=== PATIENT | female | born 1985 | race Caucasian/White ===

== ENCOUNTER 2018-03-15 13:27 | Emergency (ER) | payer BC ==
[2018-03-15] MEDS ORDERED: Metoclopramide HCl 10 MG/2 ML VIAL ONE (14:10)
[2018-03-15] MEDS ORDERED: diphenhydrAMINE 50 MG/ML VIAL ONE (14:10)
[2018-03-15] MEDS ORDERED: Famotidine 40 MG/4 ML VIAL SLOW IVP SCH (14:30)
[2018-03-15] MEDS ORDERED: Famotidine/PF 20 mg/2ml Vial SLOW IVP SCH (14:45)
[2018-03-15 14:51] LABS: #Eosinphils 0.1 thou/uL (0.0-0.7); #Lymphocytes 1.7 thou/uL (1.20-3.40); #Monocytes 0.5 thou/uL (0.11-0.59); #Neutrophils 9.1 thou/uL (1.40-6.50); %Basophils 0.4 % (0.0-1.0); %Eosinophils 0.5 % (0.0-10.0); %Monocytes 4.3 % (0.0-10.0); %Neutrophils 79.9 % (42.0-75.0); Mean Corpuscular HGB CONC 35.4 g/dL (32.0-36.0); Mean Corpuscular Hemoglobin 29.2 pg (27.0-31.0); Mean Corpuscular Volume 82.4 fl (81.0-99.0); Platelet Count 329 thou/uL (130-400); Red Blood Cell (RBC) Count 4.11 mill/uL (4.20-5.40); White Blood Cell (WBC) Count 11.4 thou/uL (4.8-10.8)
[2018-03-15 15:11] LABS: ALT (SGPT) 12 U/L (8-55); AST (SGOT) 13 U/L (5-34); Albumin 3.8 g/dL (3.5-5.0); Alkaline Phosphatase 70 U/L (40-150); Anion Gap 11 mmol/L (10-20); BUN (Urea Nitrogen) 4 mg/dL (7.0-18.7); Bilirubin, Total 0.2 mg/dL (0.2-1.2); Calc. Creatinine Clearance 0 mL/min (70-130); Calcium 9.6 mg/dL (7.8-10.44); Carbon Dioxide 22 mmol/L (22-29); Chloride 106 mmol/L (98-107); Estimated GFR-MDRD Greater than 90; Globulin 3.1 g/dL (2.4-3.5); Glucose 92 mg/dL (70-105); Potassium 3.8 mmol/L (3.5-5.1); Protein, Total 6.9 g/dL (6.0-8.3); Sodium 135 mmol/L (136-145)
== END 2018-03-15 16:23 | disposition home or self-care (01) ==
LOC: ERS 13:27
DX: O21.0 Mild hyperemesis gravidarum (principal); Z3A.16 16 weeks gestation of pregnancy
CPT/HCPCS: 80053; 85025; 96361; 96374; 96375; J1200; J2765; S0028

== ENCOUNTER 2018-08-28 06:58 | Inpatient (IN) | payer BC ==
[2018-08-28 07:54] VITALS: BMI 38.9
[2018-08-28] MEDS ORDERED: Acetaminophen 500 MG TAB PO PRN (08:18)
[2018-08-28] MEDS ORDERED: Lidocaine 1% (PF) 30 ML VIAL SC PRN (08:18)
[2018-08-28] MEDS ORDERED: Ondansetron HCl/PF 4 MG/2 ML Vial IVP PRN ×4 (08:18→16:29)
[2018-08-28] MEDS ORDERED: Zolpidem Tartrate 5 MG TAB PO PRN (08:18)
[2018-08-28] MEDS ORDERED: Butorphanol Tartrate 1 MG/ML VIAL SLOW IVP PRN (08:18)
[2018-08-28] MEDS ORDERED: HYDROcodone/Acetaminophen 5/325 mg Tablet PO PRN ×3 (08:18→16:48)
[2018-08-28] MEDS ORDERED: NS / Oxytocin 40 units/1000ml 1,000 ML IV PRN (08:18)
[2018-08-28] MEDS ORDERED: Ibuprofen 800 MG TAB PO PRN (08:18)
[2018-08-28] MEDS ORDERED: Promethazine HCl 25 MG/ML VIAL IM PRN ×3 (08:18→16:29)
[2018-08-28] MEDS ORDERED: Fentanyl 4 mcg/Bup 0.1% Cadd 100 ML ONE (08:28)
[2018-08-28] MEDS ORDERED: Lactated Ringer's 1,000 ML IV SCH (08:30)
[2018-08-28 09:05] LABS: Hemoglobin 10.8 g/dL (12.0-16.0); Mean Corpuscular HGB CONC 32.6 g/dL (32.0-36.0); Mean Corpuscular Hemoglobin 25.6 pg (27.0-31.0); Mean Corpuscular Volume 78.6 fL (78.0-98.0); Mean Platelet Volume 7.6 fL (7.4-10.4); Platelet Count 308 thou/uL (130-400); RBC Distribution Width 14.5 % (11.5-14.5); Red Blood Cell (RBC) Count 4.23 mill/uL (4.20-5.40); White Blood Cell (WBC) Count 8.4 thou/uL (4.8-10.8)
[2018-08-28 09:47] LABS: HBSAg Index 0.18 S/CO (0-0.99); Hep B Surf Ag Non-Reactive S/CO (NonReactive); Syphilis Antibody Nonreactive (Nonreactive); Syphilis Antibody Index 0.08 S/CO (<1.00 Non-Reactive)
[2018-08-28] MEDS: Lactated Ringer's 1,000 ML IV SCH ×2 (10:03→15:21)
[2018-08-28] MEDS ORDERED: Naloxone HCl 0.4 mg/ml Vial IVP PRN ×4 (12:51→16:29)
[2018-08-28] MEDS ORDERED: ePHEDrine/0.9% NaCl/PF SYRINGE 50 mg/10 ml SLOW IVP PRN (12:51)
[2018-08-28] MEDS ORDERED: Lactated Ringer's 500 ML IV PRN (12:51)
[2018-08-28] MEDS ORDERED: diphenhydrAMINE 50 MG/ML VIAL IVP PRN ×2 (12:51→16:29)
[2018-08-28] MEDS ORDERED: Acetaminophen 325 MG TAB PO PRN (12:51)
[2018-08-28] MEDS ORDERED: Eucerin (Mineral Oil/Petrolatum,White) 30 gm Jar TOP PRN ×2 (12:51→16:29)
[2018-08-28] MEDS ORDERED: Communication Order-Pharmacy FS SCH ×2 (13:00→16:30)
[2018-08-28] MEDS ORDERED: Fentanyl 4 mcg/Bupivacaine 0.1% Cassette 100 ML EPIDURAL SCH (13:00)
[2018-08-28] MEDS ORDERED: Ondansetron HCl/PF 4 MG/2 ML Vial ONE ×2 (13:12→16:00)
[2018-08-28] MEDS ORDERED: CEFAZOLIN/Water 2 GM/20 ML SYRINGE ONE ×2 (13:30→14:49)
[2018-08-28] MEDS ORDERED: Bicitra 30 ML UDCUP ONE (14:49)
[2018-08-28] MEDS ORDERED: CEFAZOLIN/Water 2 GM/20 ML SYRINGE SLOW IVP SCH (15:15)
[2018-08-28] MEDS ORDERED: Bicitra 30 ML UDCUP PO SCH (15:15)
[2018-08-28] MEDS: Bicitra 30 ML UDCUP ONE ×2 (15:17→17:37)
[2018-08-28] MEDS ORDERED: Fentanyl 100 MCG/2 ML VIAL ONE (15:47)
[2018-08-28] MEDS ORDERED: Oxytocin 10 UNITS/ML VIAL ONE ×4 (15:57→15:58)
[2018-08-28] MEDS ORDERED: PHENYLEPHRINE-NS 100 MCG/ML 10 ML SYRINGE ONE (16:00)
[2018-08-28] MEDS ORDERED: Morphine PF 1 MG/ML SYR ONE (16:01)
[2018-08-28] MEDS ORDERED: Lidocaine 2% MPF 10 ML AMP (For Epidural Use) ONE (16:13)
[2018-08-28] MEDS ORDERED: Ketorolac Tromethamine 30 MG/ML VIAL IVP PRN (16:29)
[2018-08-28] MEDS ORDERED: L&D-Morphine 4 MG/ML VIAL SLOW IVP PRN (16:29)
[2018-08-28] MEDS ORDERED: HYDROmorphone 2 MG/ML VIAL SLOW IVP PRN (16:29)
[2018-08-28] MEDS ORDERED: Naloxone HCl 0.4 mg/ml Vial IV PRN (16:29)
[2018-08-28] MEDS ORDERED: Promethazine HCl 25 MG SUPP PR PRN (16:29)
[2018-08-28] MEDS ORDERED: Meperidine HCl/PF 25 MG/ML VIAL SLOW IVP PRN (16:29)
[2018-08-28] MEDS ORDERED: Ketorolac Tromethamine 30 MG/ML VIAL IVP SCH (16:30)
--- NOTE | 2018-08-28 16:41 | PDOC.OPDEL ---
OB Operative/Delivery Note Delivery Dr/Surgeon: Petrona Assist: Jessie Pre-Delivery Diagnosis: breech Procedure/Post Delivery Dx: primary low transverse CS Weeks gestation: 39 Anesthesia: epidural - Findings A Sex: male Weight: 8 lb 15 oz - 1 min: 8 - 5 min: 9 - Additional Findings/Plan Placenta delivered: manual removal findings: low transverse hysterotomy without extension Compilations/Other Findings: none Post delivery plan: routine recovery
[2018-08-28] MEDS ORDERED: Adacel (T-DAP) 0.5 ML VIAL IM ONE (16:48)
[2018-08-28] MEDS ORDERED: Bisacodyl 10 MG SUPP PR PRN (16:48)
[2018-08-28] MEDS ORDERED: Lanolin Ointment 7 GM TUBE TOP PRN (16:48)
[2018-08-28] MEDS ORDERED: Meperidine HCl/PF 25 MG/ML VIAL IM PRN (16:48)
[2018-08-28] MEDS ORDERED: Misoprostol 200 MCG TAB PR PRN (16:48)
[2018-08-28] MEDS ORDERED: Simethicone Chewable 80 MG TAB PO PRN (16:48)
[2018-08-28] MEDS: Docusate Calcium (SURFAK) 240 MG CAP PO SCH (21:33)
--- NOTE | 2018-08-28 21:34 | OP ---
DATE OF PROCEDURE: 08/28/2018 PREOPERATIVE DIAGNOSES: 1. A 32-year-old white female , A1 at 39-40 weeks' gestation. 2. Jesus breech presentation. 3. Class A2 gestational diabetic. POSTOPERATIVE DIAGNOSES: 1. A 32-year-old white female , A1 at 39-40 weeks' gestation. 2. Jesus breech presentation. 3. Class A2 gestational diabetic. PROCEDURE PERFORMED: External cephalic version attempt. ANESTHESIA: Epidural. COMPLICATIONS: None. DESCRIPTION OF OPERATIVE PROCEDURE: The patient had received an epidural anesthetic agent anesthesia for the external cervical version attempt. A bedside ultrasound was performed at that time showing the fetus to be in the jesus breech presentation with head in the right upper quadrant and back facing the patient's left lateral uterine wall. The abdomen was covered with and a forward ro ll attempt was carried out with two attempts intervening intermittent heart tone assessment vis ually with ultrasound was carried out showing the heart tones remained in the 140s throughout. The placenta was fundal position. We were unable to budge the buttocks from the pelvis and no signi ficant movement of the head with a forward roll was made after 2 attempts. Therefore, we decid ed to abandon the external cervical version attempt and now we will proceed with primary sec tion.
--- NOTE | 2018-08-29 00:10 | OP ---
DATE OF SURGERY: 08/28/2018 PREOPERATIVE DIAGNOSES: 1. A 32-year-old white female, G3, P1, A1 at 39-40 weeks' gestation. 2. Class A2 gestational diabetes. 3. Jesus breech presentation, status post external cephalic version attempt with persistent breech p resentation. POSTOPERATIVE DIAGNOSES: 1. A 32-year-old white female, A1 at 39-40 weeks' gestation. 2. Class A2 gestational diabetes. 3. Jesus breech presentation, status post external cephalic version attempt with persistent breech p resentation. PROCEDURE: Primary low transverse section. SURGEON: Geneva Russ M.D. PICK UP MAN SURGEON: Iker Roman M.D. ANESTHESIA: Epidural. ESTIMATED BLOOD LOSS: 750 mL. QUANTITATIVE BLOOD LOSS: Pending at the time of my dictation. COUNTS: Correct x2. ANTIBIOTICS: Two grams Ancef front end assistant to the OR. FINDINGS: 1. Vigorous male , jesus breech presentation, Apgars 8 and 9, weight 8 pounds and 15 oun velia. Clear amniotic fluid noted. 2. Normal appearing fallopian tubes, uterus, and ovaries. DISPOSITION: To the recovery room in stable. DESCRIPTION OF OPERATIVE PROCEDURE: The patient previously received informed consent in regard to lopez rgery. She was taken back to the operating room where she received an adequate dosing of her epidura l. She was then placed in supine position, prepped and draped in usual sterile fashion. A Pfannenst iel incision was then made in the lower abdomen. This was carried down the fascia. Fascia was nicke d in midline. Fascial incision was extended bilaterally using curved Mccloud scissors. The rectus fasc ia was then dissected sharply and bluntly off the rectus muscle belly superiorly and inferiorly. Rec tus muscle bellies were then divided in the midline. The peritoneal cavity was entered. An Nitin O retractor was placed. Bladder flap was created in usual fashion. A 2-cm hysterotomy incision was t hen made in the lower uterine segment. This is extended via finger fractionation. The amniotic bag was ruptured. Clear amniotic fluid noted. At this time, the buttocks of the infant was then deliver ed through the hysterotomy incision and each leg was easily delivered and then a moistened towel was placed in the buttocks in a corkscrewing technique by grasping the buttocks over the sacrum, a twisti ng motion was carried out in a corkscrewing technique to easily deliver the arms and the head was rem ained flexed by my health center assistant with easy delivery of the head. The cord was then doubly clamped and cut and then baby was handed to pediatric team in attendance. The usual cord blood was obtained. The placenta was then manually extracted. Uterus was externalized. Uterus was curetted of any rem aining placental fragments with dry laparotomy sponge. Hysterotomy incision was closed with #1 Monoc ryl in running locking fashion. Hemostasis on hysterotomy site was confirmed. The uterus then retur david back in the abdomen. The pelvis again was irrigated and suctioned. Hysterotomy incision again c onfirmed to be hemostatic. The rectus muscle bellies were then noted to be hemostatic and the fascia was then closed with 0 PDS suture x2 in running continuous fashion. Subcutaneous tissue was noted t o be hemostatic and was approximated with running locking 3-0 plain gut. The skin was then closed wi th nabeel. The surgery was terminated and no anesthetic or surgical complications.
[2018-08-29] MEDS ORDERED: Ondansetron HCl/PF 4 MG/2 ML Vial IVP PRN (01:30)
[2018-08-29] MEDS ORDERED: Promethazine HCl 25 MG SUPP PR PRN (01:30)
[2018-08-29] MEDS ORDERED: diphenhydrAMINE 50 MG/ML VIAL IM PRN (01:30)
[2018-08-29] MEDS ORDERED: Promethazine HCl 25 MG/ML VIAL IM PRN (01:30)
[2018-08-29] MEDS ORDERED: HYDROcodone/Acetaminophen 5/325 mg Tablet PO PRN ×2 (01:30)
[2018-08-29] MEDS ORDERED: diphenhydrAMINE 50 MG/ML VIAL IVP PRN (01:30)
[2018-08-29] MEDS ORDERED: Zolpidem Tartrate 5 MG TAB PO PRN (01:30)
[2018-08-29] MEDS ORDERED: diphenhydrAMINE 25 MG CAP PO PRN (01:30)
[2018-08-29] MEDS ORDERED: Naloxone HCl 0.4 mg/ml Vial IV PRN (01:30)
[2018-08-29] MEDS ORDERED: Naloxone HCl 0.4 mg/ml Vial IVP PRN (01:30)
[2018-08-29] MEDS ORDERED: Hydrocerin (Eucerin) Cream 120 gm Jar TOP PRN (01:30)
[2018-08-29] MEDS: Lactated Ringer's 1,000 ML IV SCH ×4 (02:19→23:05)
[2018-08-29 06:52] LABS: Mean Corpuscular Hemoglobin 26.3 pg (27.0-31.0); Mean Corpuscular Volume 79.8 fL (78.0-98.0); Mean Platelet Volume 6.9 fL (7.4-10.4); Platelet Count 232 thou/uL (130-400); RBC Distribution Width 14.5 % (11.5-14.5); White Blood Cell (WBC) Count 8.5 thou/uL (4.8-10.8)
[2018-08-29] MEDS: Ketorolac Tromethamine 30 MG/ML VIAL IVP SCH ×2 (07:28→13:09)
--- NOTE | 2018-08-29 07:39 | PDOC.PP ---
Post Progress Note Post Day #: 1 PO intake tolerated: yes Flatus: yes Vital Signs (12 hours) Temp Pulse Resp BP Pulse Ox 08/29/18 04:12 98.4 F 75 18 110/57 L 98 08/29/18 00:15 75 18 116/58 L 96 08/28/18 21:22 98.2 F 87 20 124/60 96 08/28/18 20:15 98.3 F 86 18 122/65 98 Weight Weight 220 lb - Physical Examination Abdominal: + bowel sounds, lochia, no distention, appropriately TTP Skin: CS incision dry & intact, no rash Result Diagrams: 08/29/18 06:17 Additional Labs: Post Labs Blood Type A POSITIVE 08/28/18 07:34 Hep Bs Antigen Non-Reactive S/CO (NonReactive) 08/28/18 07:34 - Assessment/Plan Post op day 1- for breech. Doing well. Routine post op care.
[2018-08-29] MEDS: Docusate Calcium (SURFAK) 240 MG CAP PO SCH ×2 (10:18→22:36)
[2018-08-29] MEDS: Prenatal Vitamin 1 TAB PO SCH (10:18)
[2018-08-29] MEDS: traMADol HCl 50 MG TAB PO PRN (18:31)
[2018-08-29] MEDS: Ibuprofen 800 MG TAB PO SCH (22:36)
[2018-08-30] MEDS: Ibuprofen 800 MG TAB PO SCH (06:14)
[2018-08-30 08:15] VITALS: BP 115/66; TEMP 97.7
[2018-08-30] MEDS: Prenatal Vitamin 1 TAB PO SCH (09:37)
[2018-08-30] MEDS: Docusate Calcium (SURFAK) 240 MG CAP PO SCH (09:37)
[2018-08-30] MEDS: traMADol HCl 50 MG TAB PO PRN (09:40)
[2018-08-30] MEDS: Lactated Ringer's 1,000 ML IV SCH (12:47)
== END 2018-08-30 13:01 | disposition home or self-care (01) | DRG 787 ==
LOC: L&D 06:58 → 3SE 19:45
PROVIDERS: ADMIT Obstetrics & Gynecology; ATTEND Obstetrics & Gynecology
PROC: 10D00Z1 Extraction of Products of Conception, Low, Open Approach (ICD-10-PCS; principal; 2018-08-28)
PROC: 10S0XZZ Reposition Products of Conception, External Approach (ICD-10-PCS; 2018-08-28)
PROC: 4A0HXCZ Measurement of Products of Conception, Cardiac Rate, External Approach (ICD-10-PCS; 2018-08-28)
DX: O32.1XX0 Maternal care for breech presentation, not applicable or unspecified (principal); O98.32 Other infections with a predominantly sexual mode of transmission complicating childbirth; O24.425 Gestational diabetes mellitus in childbirth, controlled by oral hypoglycemic drugs; Z3A.39 39 weeks gestation of pregnancy; Z37.0 Single live birth; A60.04 Herpesviral vulvovaginitis; Z79.899 Other long term (current) drug therapy
CPT/HCPCS: 36415; 36416; 51702; 59412; 76815; 85027; 86780; 86850; 86900; 86901; 87340; J1885; J2001; J2274; J2405; J2590; J3010

== ENCOUNTER 2018-11-02 19:17 | Emergency (ER) | payer BC ==
[2018-11-02 19:47] LABS: #Eosinphils 0.1 thou/uL (0.0-0.7); #Lymphocytes 2.6 thou/uL (1.20-3.40); #Neutrophils 9.1 thou/uL (1.40-6.50); %Eosinophils 0.5 % (0.0-10.0); %Lymphocytes 20.1 % (21.0-51.0); %Neutrophils 71.3 % (42.0-75.0); Hemoglobin 12.9 g/dL (12.0-16.0); Mean Corpuscular Volume 78.7 fL (78.0-98.0); Mean Platelet Volume 6.7 fL (7.4-10.4); Platelet Count 322 thou/uL (130-400); RBC Distribution Width 14.3 % (11.5-14.5); Red Blood Cell (RBC) Count 4.98 mill/uL (4.20-5.40); White Blood Cell (WBC) Count 12.8 thou/uL (4.8-10.8)
[2018-11-02] MEDS ORDERED: Acetaminophen 500 MG TAB ONE (19:49)
[2018-11-02] MEDS ORDERED: Ondansetron PF 4 MG/2 ML Vial ONE (19:57)
[2018-11-02 20:05] LABS: ALT (SGPT) 12 U/L (8-55); AST (SGOT) 15 U/L (5-34); Albumin 4.2 g/dL (3.5-5.0); Alkaline Phosphatase 142 U/L (40-150); Anion Gap 16 mmol/L (10-20); BUN (Urea Nitrogen) 10 mg/dL (7.0-18.7); Bilirubin, Total 0.5 mg/dL (0.2-1.2); Calc. Creatinine Clearance 0 mL/min (70-130); Calcium 9.1 mg/dL (7.8-10.44); Carbon Dioxide 22 mmol/L (22-29); Chloride 103 mmol/L (98-107); Estimated GFR-MDRD 86; Globulin 3.8 g/dL (2.4-3.5); Glucose 92 mg/dL (70-105); Potassium 4.1 mmol/L (3.5-5.1); Sodium 137 mmol/L (136-145)
[2018-11-02] MEDS ORDERED: Clindamycin/D5W 900 mg/50 ml Premix Bag ONE (22:12)
== END 2018-11-02 23:16 | disposition home or self-care (01) ==
LOC: ERS 19:17
DX: N61.0 Mastitis without abscess (principal)
CPT/HCPCS: 80053; 85025; 87040; 93005; 96361; 96365; 96375; J2405; J3490

== ENCOUNTER 2019-08-17 15:15 | Observation (INO) | payer BC ==
[2019-08-17 15:58] LABS: #Basophils 0.1 thou/uL (0.0-0.2); #Lymphocytes 1.5 thou/uL (1.20-3.40); #Monocytes 0.6 thou/uL (0.11-0.59); #Neutrophils 11.4 thou/uL (1.40-6.50); %Basophils 0.4 % (0.0-1.0); %Eosinophils 0.2 % (0.0-10.0); %Lymphocytes 11.1 % (21.0-51.0); %Monocytes 4.1 % (0.0-10.0); %Neutrophils 84.2 % (42.0-75.0); Hemoglobin 14.2 g/dL (12.0-16.0); Mean Corpuscular HGB CONC 34.5 g/dL (32.0-36.0); Mean Corpuscular Hemoglobin 28.9 pg (27.0-31.0); Mean Corpuscular Volume 83.7 fL (78.0-98.0); Mean Platelet Volume 6.5 fL (7.4-10.4); Platelet Count 336 thou/uL (130-400); RBC Distribution Width 12.5 % (11.5-14.5); Red Blood Cell (RBC) Count 4.91 mill/uL (4.20-5.40); White Blood Cell (WBC) Count 13.5 thou/uL (4.8-10.8)
[2019-08-17 16:16] LABS: ALT (SGPT) 12 U/L (8-55); AST (SGOT) 14 U/L (5-34); Albumin 4.6 g/dL (3.5-5.0); Alkaline Phosphatase 91 U/L (40-110); Anion Gap 12 mmol/L (10-20); BUN (Urea Nitrogen) 9 mg/dL (7.0-18.7); Bilirubin, Total 0.5 mg/dL (0.2-1.2); Calc. Creatinine Clearance 0 mL/min (70-130); Calcium 9.6 mg/dL (7.8-10.44); Carbon Dioxide 26 mmol/L (22-29); Chloride 99 mmol/L (98-107); Estimated GFR-MDRD Greater than 90; Glucose 94 mg/dL (70-105); Lipase 8 U/L (8-78); Potassium 3.9 mmol/L (3.5-5.1); Protein, Total 7.6 g/dL (6.0-8.3); Sodium 133 mmol/L (136-145)
[2019-08-17] MEDS ORDERED: Ondansetron PF 4 MG/2 ML Vial ONE (17:20)
[2019-08-17] MEDS ORDERED: Morphine 4 MG/ML VIAL ONE (17:20)
[2019-08-17] MEDS ORDERED: Mag-Al 1200 mg/1200 mg/30 ML UDCUP ONE (17:21)
[2019-08-17] MEDS ORDERED: Lidocaine Viscous Sol 2% 15 ml UD Cup ONE (17:21)
[2019-08-17] MEDS ORDERED: Pantoprazole 40 MG VIAL ONE ×2 (17:21→17:23)
[2019-08-17 17:59] LABS: Bacteria/HPF None Seen HPF (None Seen); Bilirubin Negative (Negative); Blood, Urine Trace (Negative); Clarity Clear (Clear); Glucose, Urine (Dipstick) Normal (Negative); Leukocyte Negative Leu/uL (Negative); Nitrite Negative (Negative); Protein, Urine (Dipstick) Negative (Neg-Trace); RBC/HPF 0-3 HPF (0-3); Squamous Epithelial 0-3 HPF (0-3); Urobilinogen Normal mg/dL (Less than 2); WBC/HPF 0-3 HPF (0-3)
[2019-08-17 18:01] LABS: Pregnancy Test - Urine (BHCG) Negative (Negative); Pregu Control Background? CLEAR/WHITE (CLR/WHITE); Pregu Control Bar Appear? YES (CONTROL BAR); Specific Gravity 1.005 (1.002-1.036)
--- NOTE | 2019-08-17 18:46 | CT ---
EXAM: Abdomen and pelvic CT scan with contrast: HISTORY: Abdominal pain COMPARISON: None FINDINGS: The visualized lung bases are clear. Liver: Unremarkable. Gallbladder:Unremarkable. Pancreas:Unremarkable Spleen:Unremarkable. Adrenal glands:Unremarkable. Kidneys:No renal calculus or acute obstruction. No solid or cystic renal mass. No evidence for bowel obstruction. The appendix is enlarged measuring up to approximately 0.9 cm in outer dimension and is fluid-filled. There is possibly very minute periappendiceal fat stranding but no significant surrounding fluid or other findings of acute inflammation. No abscess. The urinary bladder is unremarkable. Reproductive system:Unremarkable No abscess, adenopathy, or abnormal fluid collection within the abdomen or pelvis. IMPRESSION: Abnormal dilated appendix which is fluid-filled concerning for the possibility of minimal early acute appendicitis. Findings were discussed with Dr. Bran in the emergency room at 6:40 PM CODE CR
[2019-08-17] MEDS ORDERED: Piperacillin/Tazobactam 4.5 GM VIAL ONE (19:18)
[2019-08-17] MEDS ORDERED: Dextrose 50% Abboject 50 ML SYRINGE SLOW IVP PRN (21:52)
[2019-08-17] MEDS ORDERED: Morphine 2 MG/ML SYRINGE SLOW IVP PRN (21:52)
[2019-08-17] MEDS ORDERED: Morphine 4 MG/ML VIAL SLOW IVP PRN (21:52)
[2019-08-17] MEDS ORDERED: Ketorolac Tromethamine 30 MG/ML VIAL IVP PRN (21:52)
[2019-08-17] MEDS ORDERED: Ondansetron PF 4 MG/2 ML Vial IVP PRN (21:52)
[2019-08-17] MEDS ORDERED: hydrALAZINE 20 MG/ML VIAL SLOW IVP PRN (21:52)
[2019-08-17] MEDS ORDERED: Dextrose 5% in Water 1,000 ML IV PRN (21:52)
[2019-08-17] MEDS ORDERED: Promethazine HCl 25 MG/ML VIAL IM PRN (21:52)
[2019-08-17] MEDS ORDERED: Famotidine/PF 20 mg/2ml Vial SLOW IVP SCH (22:00)
[2019-08-17] MEDS: D5 1/2 NS w/20 mEq KCL 1,000 ML IV SCH (22:28)
[2019-08-17] MEDS: Acetaminophen 1,000 MG in Premix Bag 1 BAG IVPB PRN (22:44)
[2019-08-17] MEDS: Piperacillin/Tazobactam 3.375 GM in Sodium Chloride 0.9% 100 ML IVPB SCH (23:27)
[2019-08-18 01:07] VITALS: BMI 32.1
[2019-08-18] MEDS: Acetaminophen 1,000 MG in Premix Bag 1 BAG IVPB PRN ×2 (05:08→10:59)
[2019-08-18] MEDS: Piperacillin/Tazobactam 3.375 GM in Sodium Chloride 0.9% 100 ML IVPB SCH ×2 (06:41→10:59)
[2019-08-18] MEDS ORDERED: Famotidine/PF 20 mg/2ml Vial SLOW IVP SCH ×2 (09:00→21:00)
[2019-08-18] MEDS ORDERED: Famotidine 20 MG TAB PO SCH ×2 (09:00→21:00)
[2019-08-18] MEDS ORDERED: FLU VACC QS2019-20(6MOS UP)/PF 60 MCG/0.5 ML SYRINGE IM ONE (09:00)
--- NOTE | 2019-08-18 09:08 | HP ---
CHIEF COMPLAINT: Right lower quadrant pain. HISTORY OF PRESENT ILLNESS: This is a 33-year-old female, who presents with a history of periumbilical discomfort associated with nausea and bloating for a few days. Pain became more localized in the right lower quadrant last night. Seen in the emergency department, where a CT scan reveals acute appendicitis. She denies history of chronic abdominal pain, inflammatory bowel disease, chronic diarrhea. She notes no dysuria or hematuria. No change in bowels. PAST MEDICAL HISTORY: She denies. PAST SURGICAL HISTORY: C-sections. MEDICATIONS: The patient is taking daily vitamins. ALLERGIES: SULFA. REVIEW OF SYSTEMS: Ten-system review of systems is otherwise negative unless described above. PHYSICAL EXAMINATION: VITAL SIGNS: Blood pressure 98/68, pulse 85, respirations 16. She is afebrile. HEENT: Sclerae anicteric. Oropharynx clear. NECK: No lymphadenopathy. CHEST: Clear. HEART: Regular rate and rhythm. ABDOMEN: Soft, tender in the right lower quadrant with localized guarding without rebound. No abdominal or inguinal hernias. EXTREMITIES: No ischemia or edema to extremities. LABORATORY DATA: White blood cell count is 13, hemoglobin 14, platelets 336. Creatinine 0.71. ASSESSMENT: Acute appendicitis. PLAN: Laparoscopic appendectomy. Risks, benefits, and alternatives discussed. She gives consent. We will do this today. Job ID: [id number]
[2019-08-18] MEDS: D5 1/2 NS w/20 mEq KCL 1,000 ML IV SCH (09:10)
[2019-08-18] MEDS ORDERED: Midazolam HCl 2 mg/2 ml Vial ONE (12:40)
[2019-08-18] MEDS ORDERED: Bupivacaine/Epinephrine 0.25% 30 ML VIAL ONE (12:59)
[2019-08-18] MEDS ORDERED: Ketorolac Tromethamine 30 MG/ML VIAL ONE (13:00)
[2019-08-18] MEDS ORDERED: Rocuronium Bromide 10 MG/ML (10ML VIAL) ONE (13:00)
[2019-08-18] MEDS ORDERED: Ondansetron PF 4 MG/2 ML Vial ONE (13:00)
[2019-08-18] MEDS ORDERED: Lidocaine 1% PF 5 ML VIAL ONE (13:00)
[2019-08-18] MEDS ORDERED: Dexamethasone 20 MG/5 ML VIAL ONE (13:00)
[2019-08-18] MEDS ORDERED: PROPOFOL 200 MG/20 ML VIAL ONE (13:00)
[2019-08-18] MEDS ORDERED: Glycopyrrolate 0.2 MG/ML 5 ML SYRINGE ONE (13:00)
[2019-08-18] MEDS ORDERED: Fentanyl 100 MCG/2 ML VIAL ONE ×2 (13:07→14:45)
[2019-08-18] MEDS ORDERED: Promethazine HCl 25 MG/ML VIAL IM PRN ×2 (14:05→15:14)
[2019-08-18] MEDS ORDERED: PACU-Morphine 4MG/ML VIAL SLOW IVP PRN (14:05)
[2019-08-18] MEDS ORDERED: Morphine Sulfate 2 MG/ML SYRINGE SLOW IVP PRN (14:05)
[2019-08-18] MEDS ORDERED: Promethazine HCl 25 MG/ML VIAL SLOW IVP PRN (14:05)
[2019-08-18] MEDS ORDERED: HYDROmorphone 2 MG/ML VIAL SLOW IVP PRN (14:05)
[2019-08-18] MEDS ORDERED: Ondansetron HCl/PF 4 MG/2 ML Vial IVP PRN (14:05)
--- NOTE | 2019-08-18 15:04 | OP ---
DATE OF PROCEDURE: 08/18/2019 PREOPERATIVE DIAGNOSIS: Acute appendicitis. POSTOPERATIVE DIAGNOSIS: Acute appendicitis. PROCEDURE PERFORMED: Laparoscopic appendectomy. ANESTHESIA: General. ESTIMATED BLOOD LOSS: Minimal. COMPLICATIONS: None. SPECIMEN: Appendix. FINDINGS: Appendicitis. DESCRIPTION OF PROCEDURE: The patient was taken to the operating room and laid supine on the operating room table. After general anesthetic was obtained, the abdomen was prepped and draped in a sterile fashion. A Latham catheter was placed. A curved incision was made below the umbilicus. Cautery dissected down to and scored the fascia. Abdominal cavity was entered bluntly using a Juju clamp. Holding stitch of PDS placed on each side of the fascia. Salvador trocar was placed. High-flow pneumoperitoneum was obtained. A suprapubic 5-mm port, left lower quadrant 5-mm port were placed under direct visualization. The cecum was rolled over to reveal acute appendicitis. A small window was made at the base of the appendix. Laparoscopic stapler was fired across the base of the appendix. A vascular reload was fired across the mesoappendix. The appendix was placed in an EndoCatch bag and brought out through the Curran. All port sites were infiltrated using local anesthetic. There was no bleeding on the staple lines. The right lower quadrant and pelvis were irrigated using sterile solution. There was no ongoing bleeding. All ports were removed under camera visualization. Pneumoperitoneum was let down. PDS used to close the fascial defect below the umbilicus. All incisions were irrigated and closed using 4-0 Monocryl and Dermabond. The patient was sent to Recovery in stable condition. All instrument counts, needle counts, and lap counts were correct. Job ID: [id number]
[2019-08-18] MEDS ORDERED: HYDROcodone/Acetaminophen 10/325 mg Tablet PO PRN (15:14)
[2019-08-18] MEDS ORDERED: Dextrose 50% Abboject 50 ML SYRINGE SLOW IVP PRN (15:14)
[2019-08-18] MEDS ORDERED: Sodium Chloride 0.9% 1,000 ML IV SCH (15:14)
[2019-08-18] MEDS ORDERED: hydrALAZINE 20 MG/ML VIAL SLOW IVP PRN (15:14)
[2019-08-18] MEDS ORDERED: Morphine 2 MG/ML SYRINGE SLOW IVP PRN (15:14)
[2019-08-18] MEDS ORDERED: Ondansetron PF 4 MG/2 ML Vial IVP PRN (15:14)
[2019-08-18] MEDS ORDERED: Morphine 4 MG/ML VIAL SLOW IVP PRN (15:14)
[2019-08-18] MEDS ORDERED: Dextrose 5% in Water 1,000 ML IV PRN (15:14)
[2019-08-18 15:26] VITALS: BP 107/61; TEMP 97.3
== END 2019-08-18 18:05 | disposition home or self-care (01) ==
LOC: ERS 15:15 → SURG A 19:50
PROVIDERS: ADMIT Surgery; ATTEND Surgery
PROC: 0DTJ4ZZ Resection of Appendix, Percutaneous Endoscopic Approach (ICD-10-PCS; principal; 2019-08-18)
DX: K35.80 Unspecified acute appendicitis (principal); Z79.899 Other long term (current) drug therapy; Z88.2 Allergy status to sulfonamides; Z91.018 Allergy to other foods
CPT/HCPCS: 36415; 74177; 80053; 81003; 81015; 81025; 83690; 85025; 88304; 96361; 96365; 96366; 96375; 96376; C9113; G0378; J0131; J1100; J1885; J2001; J2250; J2270; J2405; J2543; J2704; J3010; J3490; S0028

== ENCOUNTER 2020-04-20 18:01 | Emergency (ER) | payer BC ==
[~2020-04-20 18:01] MED LIST: Iopamidol-370 76% 500 ML 1 ML ONE
[2020-04-20] MEDS ORDERED: Fentanyl 100 MCG/2 ML VIAL ONE (18:06)
[2020-04-20 18:20] LABS: #Eosinphils 0.2 thou/uL (0.0-0.7); #Lymphocytes 2.5 thou/uL (1.20-3.40); #Monocytes 0.6 thou/uL (0.11-0.59); #Neutrophils 4.8 thou/uL (1.40-6.50); %Basophils 0.2 % (0.0-1.0); %Eosinophils 2.2 % (0.0-10.0); %Lymphocytes 31.1 % (21.0-51.0); %Monocytes 6.9 % (0.0-10.0); %Neutrophils 59.6 % (42.0-75.0); Hemoglobin 13.4 g/dL (12.0-16.0); Mean Corpuscular HGB CONC 33.9 g/dL (32.0-36.0); Mean Corpuscular Hemoglobin 28.9 pg (27.0-31.0); Mean Corpuscular Volume 85.1 fL (78.0-98.0); Mean Platelet Volume 6.8 fL (7.4-10.4); Platelet Count 326 thou/uL (130-400); RBC Distribution Width 12.1 % (11.5-14.5); Red Blood Cell (RBC) Count 4.65 mill/uL (4.20-5.40)
[2020-04-20 18:25] LABS: INR-International Normal Ratio 0.9; PTT 26.9 sec (22.9-36.1); Prothrombin Time 12.4 sec (12.0-14.7)
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
[2020-04-20 18:38] LABS: ALT (SGPT) 12 U/L (8-55); AST (SGOT) 16 U/L (5-34); Albumin 4.3 g/dL (3.5-5.0); Alkaline Phosphatase 82 U/L (40-110); Anion Gap 15 mmol/L (10-20); BUN (Urea Nitrogen) 12 mg/dL (7.0-18.7); Bilirubin, Total 0.2 mg/dL (0.2-1.2); Calc. Creatinine Clearance 0 mL/min (70-130); Calcium 9.5 mg/dL (7.8-10.44); Carbon Dioxide 20 mmol/L (22-29); Chloride 106 mmol/L (98-107); Estimated GFR-MDRD Greater than 90; Globulin 3.4 g/dL (2.4-3.5); Glucose 90 mg/dL (70-105); Lipase 12 U/L (8-78); Protein, Total 7.7 g/dL (6.0-8.3); Sodium 137 mmol/L (136-145)
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
--- NOTE | 2020-04-25 14:52 | EKG ---
Test Reason : Blood Pressure : / mmHG Vent. Rate : 087 BPM Atrial Rate : 087 BPM P-R Int : 162 ms QRS Dur : 080 ms QT Int : 380 ms P-R-T Axes : 063 077 056 degrees QTc Int : 457 ms Normal sinus rhythm Normal ECG Confirmed by AYDEE BEARD, TAMERA ([id number]), subeditor OBEY FLORES ([id number]) on 04/25/2020 2:51:33 PM Referred By: Confirmed By:TAMERA BAJWA MD
== END 2020-04-20 19:02 | disposition home or self-care (01) ==
LOC: ERS 18:01
DX: S16.1XXA Strain of muscle, fascia and tendon at neck level, initial encounter (principal); S39.012A Strain of muscle, fascia and tendon of lower back, initial encounter; V89.2XXA Person injured in unspecified motor-vehicle accident, traffic, initial encounter
CPT/HCPCS: 36415; 70450; 71045; 71260; 72125; 74177; 80053; 83690; 85025; 85610; 85730; 86850; 86900; 86901; 93005; 94760; 96374; G0390; J3010; Q9967

== ENCOUNTER 2020-07-31 08:27 | Outpatient (CLI) | payer BC ==
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
--- NOTE | 2020-07-31 09:09 | ULT ---
LIMITED LEFT BREAST ULTRASOUND: HISTORY: Pain in the left outer breast. FINDINGS: Correlation is made with the mammogram of the same date. Sonographic evaluation of the left outer breast (12 to 6 o'clock positions) demonstrates no abnormali ty. IMPRESSION: BIRADS category 2 - benign findings. Return to age-appropriate screening based on risk factors. POS: OFF
== END 2020-07-31 08:28 | disposition home or self-care (01) ==
LOC: BICMAMMO 08:27
PROVIDERS: ATTEND Physician Assistant
DX: N64.4 Mastodynia (principal)
CPT/HCPCS: 77066; G0279